=== PATIENT | male | born 1955 | race African-American/Black ===

== ENCOUNTER 2018-09-20 15:56 | Emergency (ER) | payer OTHER ==
[~2018-09-20] VITALS: Ht 172.7 cm; Wt 94.3 kg
[2018-09-20 16:19] VITALS: Ht 172.7 cm; Wt 94.3 kg
[2018-09-20 19:30] VITALS: BP 167/90
== END 2018-09-20 19:30 | disposition home or self-care (01) ==
LOC: ED 15:56
DX: M54.5 Low back pain (principal); K59.00 Constipation, unspecified; I10 Essential (primary) hypertension
CPT/HCPCS: J1885

== ENCOUNTER 2020-01-19 09:51 | Emergency (ER) | payer OTHER ==
[~2020-01-19] VITALS: Ht 172.7 cm; Wt 87.1 kg
[2020-01-19 10:04] VITALS: Ht 172.7 cm; Wt 87.1 kg
[2020-01-19 11:22] VITALS: BP 134/81
== END 2020-01-19 11:22 | disposition home or self-care (01) ==
LOC: ED 09:51
DX: G89.29 Other chronic pain (principal); M54.9 Dorsalgia, unspecified; K59.00 Constipation, unspecified; I10 Essential (primary) hypertension
CPT/HCPCS: J1885